=== PATIENT | female | born 1955 | race Caucasian/White ===

== ENCOUNTER → 2018-02-02 | Outpatient (CLI) | payer OTHER ==
--- NOTE | 2018-02-04 09:53 | MG ---
HISTORY: SCREENING Comparison: Multiple priors dating back to January 14, 2013 FINDINGS: Bilateral CC and MLO projections of the right and left breast were obtained. Heterogeneously dense f ibroglandular tissue is seen to be present without significant interval change. No suspicious ryan ectural distortion, mass or clustered microcalcifications can be observed to suggest malignancy. No skin thickening or nipple retraction is appreciated. No pathological lymphadenopathy can be identif ied. Benign-appearing calcifications are noted within the right and left breast. IMPRESSION: NO RADIOGRAPHIC EVIDENCE OF MALIGNANCY. ACR CATEGORY 2 - benign findings. FOLLOW-UP EXAM 1 YEAR. Diagnostic CAD was utilized and reviewed. * 0 (ZERO) - ASSESSMENT INCOMPLETE; ADDITIONAL IMAGING IS NEEDED. * 1/ (ONE) - NEGATIVE. * 2/II (TWO) - BENIGN FINDINGS. * 3/III (THREE) - PROBABLY BENIGN FINDING; SHORT INTERVAL FOLLOW-UP SUGGESTED. * 4/IV (FOUR) - SUSPICIOUS ABNORMALITY; BIOPSY SHOULD BE CONSIDERED. * 5/V - HIGHLY SUSPICIOUS OF MALIGNANCY; BIOPSY SHOULD BE PERFORMED. A NEGATIVE X-RAY REPORT SHOULD NOT DELAY BIOPSY IF A DOMINANT OR CLINICALLY SUSPICIOUS MASS IS PRESENT; 4 TO 8 PERCENT OF CANCERS ARE NOT IDENTIFIED BY X-RAY. A NEGA TIVE REPORT MAY REINFORCE THE CLINICAL IMPRESSION. ADENOSIS AND DENSE BREASTS MAY OBSCURE AN UNDERLY ING NEOPLASM. Reported By:
== END ==
LOC: RAD 09:19
PROVIDERS: ATTEND Nurse Practitioner Family
DX: Z12.31 Encounter for screening mammogram for malignant neoplasm of breast (principal)
CPT/HCPCS: 77067

== ENCOUNTER → 2018-02-19 | Outpatient (CLI) | payer OTHER ==
--- NOTE | 2018-02-19 11:38 | US ---
Examination: Pelvic ultrasound. Clinical History: Thick endometrium. Technique: Real-time grayscale ultrasound was used to evaluate the pelvis endovaginally. Comparison: None available. Findings: The uterus measures 5.4 x 3.8 x 4.6 cm and is normal in echogenicity with no focal mass. The endometrial stripe measures 9 mm in diameter and is mildly prominent given the postmenopausal sta tus. Endometrial sampling needs to be considered to exclude the possibility of an endometrial neoplas m. The right ovary measures 1.2 x 0.8 x 1.5 cm and is suboptimally visualized, with vascular flow noted. No definite abnormality is evident. The left ovary is not visualized. No pelvic mass or fluid collection is noted. Impression: 1. The endometrial stripe measures 9 mm in diameter and is mildly prominent given the postmenopausal status. Endometrial sampling needs to be considered to exclude the possibility of an endometrial neop lasm. Reported By:
== END ==
LOC: RAD 10:13
PROVIDERS: ATTEND Obstetrics & Gynecology
DX: N85.00 Endometrial hyperplasia, unspecified (principal)
CPT/HCPCS: 76830